=== PATIENT | female | born 1995 | race Caucasian/White ===

== ENCOUNTER 2018-09-06 16:39 | Emergency (ER) | payer OTHER ==
[2018-09-06 16:48] VITALS: BP 108/58
--- NOTE | 2018-09-06 18:31 | XRAY Report ---
Reason: right wrist pain Procedure Date: 09/06/2018 Accession Number: [id number] / [id number] Procedure: XR - Wrist 3 View RT CPT Code: FULL RESULT: EXAM: RIGHT WRIST RADIOGRAPHY EXAM DATE: 09/06/2018 06:14 PM. CLINICAL HISTORY: Right wrist pain. COMPARISON: None. TECHNIQUE: 3 views. FINDINGS: Bones: Normal. No fractures or bone lesions. Joints: Normal. No subluxations. Soft Tissues: Normal. No soft tissue swelling. IMPRESSION: Normal wrist radiography. [facility]IA
--- NOTE | 2018-09-06 18:40 | ED Physician Documentation ---
PD HPI UPPER EXT INJURY - Stated complaint Stated Complaint: R WRIST PX - Chief complaint Chief Complaint: General - History obtained from History obtained from: Patient - History of Present Illness Location: Right, Wrist Type of injury: Other (No known injury.) Timing - duration: Months (2) Timing - details: Waxing and waning Worsened by: Moving, Palpating Associated symptoms: No: Weakness, Numbness, Swelling Similar symptoms before: Has not had sx before - Additonal information Additional information: The patient is a 23-year-old female who presents with pain in her right wrist. It first started it about 2 months ago, but is concerned because it has persisted since that time. She denies any traumatic injury. The pain is worse with lifting objects. She is right-hand dominant. She denies history of similar symptoms in the past. The family recently to [facility] from [place], and she noticed that lifting boxes exacerbated the pain. She has 2 children, one of which is a toddler. She notices that lifting her toddler makes the pain worse. Review of Systems Constitutional: denies: Fever Nose: denies: Congestion Skin: denies: Rash Musculoskeletal: reports: Joint pain (Right wrist.) Neurologic: denies: Focal weakness, Numbness, Headache PD PAST MEDICAL HISTORY - Past Medical History Past Medical History: No Neuro: None Endocrine/Autoimmune: None - Past Surgical History Past Surgical History: No - Present Medications Home Medications: Ambulatory Orders Medication Instructions Recorded Confirmed Naproxen [Naprosyn] 500 mg PO BID PRN #20 tablet 09/06/18 - Allergies Allergies/Adverse Reactions: Allergies Allergy/AdvReac Type Severity Reaction Status Date / Time No Known Drug Allergies Allergy Verified 09/06/18 16:43 - Social History Does the pt smoke?: No Smoking Status: Never smoker - Immunizations Immunizations are current?: Yes PD ED PE NORMAL - Vitals Vital signs reviewed: Yes (normal) - General General: Alert and oriented X 3, Well developed/nourished - HEENT HEENT: Atraumatic - Respiratory Respiratory: No respiratory distress - Derm Derm: No rash - Extremities Extremities: Other (There is tenderness to palpation over the radial aspect of the right wrist, on the volar side. There is no swelling, discoloration, or warmth to palpation. She has full flexion and extension, as well as supination and pronation. Distal neurovascular is intact.) - Neuro Neuro: Alert and oriented X 3, No motor deficit, No sensory deficit Results - Vitals Vitals: Oxygen O2 Source Room air - Rads (name of study) Right wrist Radiology: Prelim report reviewed, EMP read contemporaneously, See rad report (Normal wrist radiography.) Procedures - Splint (location) Right wrist Splint applied by: Nurse Type of splint: Prefab velcro wrist Other: Patient tolerated well, No complications, Neurovascular intact PD MEDICAL DECISION MAKING - ED course Complexity details: reviewed results, re-evaluated patient, considered differential, d/w patient ED course: The patient's presentation is significant for arthritic pain at the radial aspect of the right wrist. There is no bony abnormality detected on radiographic imaging, and there is no evidence of infectious process on physical examination. It is unclear whether this wrist pain is caused by strain or arthritic inflammation, but strain seems more likely. Treatment in the emergency department included application of a Velcro wrist splint. She is being discharged with a prescription for Naprosyn. I discussed with her symptomatic treatment, outpatient follow-up, as well as potentially worrisome signs or symptoms that should prompt reevaluation in the emergency department. Departure - Departure Disposition: 01 Home, Self Care Clinical Impression: Arthritis pain of wrist Condition: Stable Instructions: ED Sprain Wrist Follow-Up: [facility] Albrecht [Provider Group] Prescriptions: Naproxen [Naprosyn] 500 mg PO BID PRN #20 tablet PRN Reason: Pain Comments: Use the Velcro wrist splint if it provides comfort. You can use Naprosyn twice daily as prescribed. Let pain be your guide to activity level. Follow-up with your primary physician within 2 weeks. Call to schedule an appointment. Return to the emergency department if you develop increasing pain or swelling, or otherwise worsening symptoms. Discharge Date/Time: 09/06/18 18:58
== END 2018-09-06 18:58 | disposition home or self-care (01) ==
LOC: ED 16:39
DX: M19.031 Primary osteoarthritis, right wrist (principal)
CPT/HCPCS: 29125; 99283